=== PATIENT | female | born 1965 | race Caucasian/White ===

== ENCOUNTER 2017-11-11 15:58 | Emergency (ER) | payer OTHER, MEDICAID ==
--- NOTE | 2017-11-11 16:03 | ED Physician Documentation ---
General Adult - HISTORIAN Historian: patient, spouse - HPI Stated Complaint: muscle cramps Chief Complaint: General Adult Onset: hours (2) Timing: still present Severity: mild Further Comments: yes (Her said she was running errands today after a "fire call" and she started to have muscle cramps in her legs and abdomen. She did not eat today. She does have conversion disorder and has had "reactions to things as bad as stroke symptoms" and she does "have issues with low potassium at times" She does take a supplement. She denies any fever. No nausea or vomiting. she reports she "just feels the cramps") Last known Well Date: 11/11/17 Last Known Well Time: 11:00 Last known Well Code/Unknown Code: Unknown - ROS CONST: no problems. denies: fever, recent illness CVS/RESP: denies: chest pain, cough GI/: abdominal pain. denies: vomiting, nausea MS/SKIN/LYMPH: calf pain, leg pain. denies: leg swelling, rash, ankle swelling - PAST HX Past History: other (conversion disorder, ) Surgeries/Procedures: other Immunizations: UTD - SOCIAL HX Smoking History: non-smoker Alcohol Use: none Drug Use: none - FAMILY HX Family History: No - REVIEWED ASSESSMENTS Nursing Assessment Reviewed: Yes Vitals Reviewed: Yes Progress - Progress Progress: 1700: results discussed with and pt. She will increase fluids. She will rest and follow up with PCP for any further issues. DG ED Results Lab/Radiology - Radiology Radiology Impressions: Examination: Portable chest History: GADIEL CARDIA, PAIN, TINGLING IN ARMS (Hx) / BRADYCARDIA (DICOM Hx) / BRADYCARDIA (Pt comments) Comparison exam: None provided. Findings: Single view of the chest demonstrates a normal cardiac and mediastinal silhouette. Mildly chronic interstitial changes. Lung nair without focal infiltrate. No blunting of the costophrenic margins. Osseous structures are appropriate for age. Impression: No acute appearing pulmonary process. Electronically signed on Nov 11, 2017 5:35:10 PM FORMULATION SCIENTIST by: Randall Simpson General Adult Physical Exam - PHYSICAL EXAM GENERAL APPEARANCE: mild distress EENT: eye inspection normal, RASHID, TM's nml NECK: normal inspection RESPIRATORY: no resp distress, chest non-tender, breath sounds normal CVS: reg rate & rhythm, heart sounds normal, equal pulses ABDOMEN: soft, no organomegaly, normal bowel sounds, no distension, non-tender BACK: normal inspection SKIN: warm/dry, normal color EXTREMITIES: non-tender, normal range of motion, no evidence of injury, no edema NEURO: oriented X3, CN's nml as tested, motor nml, sensation nml, mood/affect nml, cognition normal Discharge Clincal Impression: Muscle ache Referrals: Primary Doctor,No [REFERRING] - 2 Days Comments: 1. Take 1 extra potassium pill tonight 2. Increase fluids 3. oral intake of potassium rich foods tonight and tomorrow 4. follow up with PCP in AM 5. Return to ER for any increasing symptoms or concerns 6. Rest Condition: Stable Disposition: 01 HOME, SELF-CARE Decision to Admit: NO Date of Decison to Admit: 11/11/17 Decision Time: 17:39
[2017-11-11] MEDS ORDERED: ASPIRIN 81 MG CHEW TAB PO ONE (16:11)
[2017-11-11] MEDS: 0.9 % SODIUM CHLORIDE 1,000 ML IV ONE (16:25)
[2017-11-11 16:33] LABS: BASOPHILS % 0.5 (0.0-1.5); EOSINOPHILS % 0.9 % (0.0-6.8); MEAN CORPUSCULAR HEMOGLOBIN 26.9 pg (28.0-34.0); MEAN CORPUSCULAR VOLUME 86.4 fl (80.0-100.0); NEUTROPHILS # 9.8 # k/uL (1.4-7.7)
[2017-11-11 16:49] LABS: eGFR (African) > 60; eGFR (Non-African) > 60
[2017-11-11 18:03] VITALS: BP 122/69
--- NOTE | 2017-11-11 22:34 | Diagnostic Imaging Report ---
MARILYN LE [facility] [address] [facility] [address] [place], [place]. [address] Report Submission Date: Nov 11, 2017 5:35:10 PM PROSPECTING DRILLER HELPER Patient Study Name: RAIZA COPELAND Date: Nov 11, 2017 5:13:32 PM PROSPECTING DRILLER HELPER Modality Type: CR Gender: F Description: CHEST : 63 Institution: [facility] Physician: MARILYN LE Examination: Portable chest History: GADIEL CARDIA, PAIN, TINGLING IN ARMS (Hx) / BRADYCARDIA (DICOM Hx) / BRADYCARDIA (Pt comments) Comparison exam: None provided. Findings: Single view of the chest demonstrates a normal cardiac and mediastinal silhouette. Mildly chronic interstitial changes. Lung nair without focal infiltrate. No blunting of the costophrenic margins. Osseous structures are appropriate for age. Impression: No acute appearing pulmonary process. Electronically signed on Nov 11, 2017 5:35:10 PM PROSPECTING DRILLER HELPER by: Randall BLAS
== END 2017-11-11 18:00 | disposition home or self-care (01) ==
LOC: ED 15:58
DX: M79.1 Myalgia (principal)
CPT/HCPCS: 71010; 80053; 82550; 84484; 85025; 93005; J7030; 71045; 96365; 99283; S1016